=== PATIENT | male | born 1945 | race Caucasian/White ===

== ENCOUNTER 2023-04-02 11:10 | Inpatient (IN) | payer OTHER ==
[~2023-04-02] VITALS: Ht 180.3 cm; Wt 83.0 kg
[2023-04-02 11:15] VITALS: BP_SYST 207; PULSE 60; RESP 22; TEMP 98.3; O2SAT 95
[2023-04-02] MEDS ORDERED: IPRATROPIUM/ALBUTEROL SULFATE 3 ML AMPUL.NEB (DUONEB) INH ONE ×2 (11:30→14:30)
[2023-04-02 11:49] LABS: BASOPHILS # (AUTO) 0.1 K/uL (0.0-0.2); BASOPHILS % (AUTO) 0.5 % (0.0-2.0); EOSINOPHILS # (AUTO) 0.2 K/uL (0.0-0.4); EOSINOPHILS % (AUTO) 1.7 % (0.0-4.0); HEMATOCRIT 36.2 % (36-54); HEMOGLOBIN 11.5 g/dL (14.0-18.0); LYMPHOCYTES # (AUTO) 0.7 K/uL (1.0-5.5); LYMPHOCYTES % (AUTO) 6.3 % (20.5-51.5); MEAN CORPUSCULAR HEMOGLOBIN 28 pg (27-31); MEAN CORPUSCULAR HGB CONC 32 % (32-36); MEAN CORPUSCULAR VOLUME 89 fL (79.0-98.0); MONOCYTES # (AUTO) 1.2 K/uL (0.0-1.0); MONOCYTES % (AUTO) 10.7 % (1.7-9.3); NEUTROPHILS % (AUTO) 80.8 % (40.0-70.0); PLATELET COUNT (AUTO) 285 K/uL (130-430); RED BLOOD CELL COUNT(AUTO) 4.07 MIL/uL (4.2-6.2); RED CELL DISTRIBUTION WIDTH 14.9 % (9.0-15.0); WHITE BLOOD COUNT (AUTO) 11.2 K/uL (4.8-10.8)
[2023-04-02 12:18] LABS: ANION GAP 8 (5-15); CALCIUM 9.2 mg/dL (8.4-11.0); CARBON DIOXIDE 27 mmol/L (23-29); CHLORIDE 105 mmol/L (98-107); CREATININE 1.42 mg/dL (0.55-1.30); GLUCOSE 104 mg/dL (74-106); POTASSIUM 4.7 mmol/L (3.5-5.1); SODIUM SERUM 140 mmol/L (136-145); UREA NITROGEN, BLOOD 22 mg/dL (8-21)
[2023-04-02 12:55] LABS: ALANINE AMINOTRANSFERASE 20 U/L (12-78); ALBUMIN 3.3 g/dL (3.4-4.8); ASPARTATE AMINOTRANSFERASE 15 U/L (10-37); CREATINE KINASE, TOTAL 38 U/L (39-308); TOTAL BILIRUBIN 0.4 mg/dL (0.0-1.0); TOTAL PROTEIN, SERUM 7.8 g/dL (6.4-8.3)
[2023-04-02 13:22] LABS: COVID19 ANTIGEN SOFIA FIA NEGATIVE (NEGATIVE)
[2023-04-02 13:25] LABS: INFLUENZA TYPE A Negative (NEGATIVE); INFLUENZA TYPE B NEGATIVE (NEGATIVE)
[2023-04-02] MEDS ORDERED: SIMV-341 PO (14:18)
[2023-04-02] MEDS ORDERED: HYDR-4039 PO (14:18)
[2023-04-02] MEDS ORDERED: BUME1TAB8 PO (14:18)
[2023-04-02] MEDS ORDERED: GABA-534 PO (14:18)
[2023-04-02] MEDS ORDERED: CYM30 PO (14:18)
[2023-04-02] MEDS ORDERED: LOSA-412 PO (14:18)
[2023-04-02] MEDS ORDERED: LUTE1CAP5 PO (14:18)
[2023-04-02] MEDS ORDERED: BUPR-120 PO (14:18)
[2023-04-02] MEDS ORDERED: BUDE6HFA INH (14:18)
[2023-04-02] MEDS ORDERED: FERR250T PO (14:18)
[2023-04-02] MEDS ORDERED: CARV3.1246 PO (14:18)
[2023-04-02 14:49] VITALS: PULSE 60; O2SAT 98
[2023-04-02 18:43] VITALS: BP_SYST 182; PULSE 68; RESP 22; TEMP 97.9; O2SAT 100
[2023-04-02] MEDS ORDERED: NALOXONE HCL 0.4 MG/ML AMP (NARCAN) IVP PRN (20:30)
[2023-04-02] MEDS ORDERED: cloNIDine HCL 0.2 MG TABLET PO ONE (20:30)
[2023-04-02] MEDS: HYDROcodone/ACETAMIN 5-325 MG TAB (NORCO/ VICODIN) PO PRN (20:47)
[2023-04-02] MEDS: AZITHROMYCIN 250 MG in NS 250 ML IV SCH (20:51)
[2023-04-02 21:04] VITALS: BP_SYST 187; PULSE 60; RESP 19; TEMP 98.2
[2023-04-02 21:30] VITALS: O2SAT 98
[2023-04-02] MEDS: PIPERACILLIN/TAZO 3.375 GM in NS 50 ML IV SCH (22:32)
[2023-04-03] VITALS (7 sets, daily range): BP systolic 146–171; PULSE 60–73; RESP 15–22; TEMP 97.1–97.9; O2SAT 97–100
[2023-04-03] MEDS ORDERED: CARVEDILOL 3.125 MG TABLET (COREG) PO ONE
[2023-04-03] MEDS ORDERED: hydrALAZINE HCL 10 MG TABLET PO ONE
[2023-04-03] MEDS: PIPERACILLIN/TAZO 3.375 GM in NS 50 ML IV SCH ×3 (05:43→22:07)
[2023-04-03] MEDS ORDERED: FUROSEMIDE 20 MG/2 ML VIAL IVP ONE ×2 (07:45→10:15)
[2023-04-03 08:28] LABS: BASOPHILS # (AUTO) 0.1 K/uL (0.0-0.2); BASOPHILS % (AUTO) 0.5 % (0.0-2.0); EOSINOPHILS # (AUTO) 0.2 K/uL (0.0-0.4); EOSINOPHILS % (AUTO) 2.2 % (0.0-4.0); HEMATOCRIT 33.9 % (36-54); LYMPHOCYTES # (AUTO) 0.8 K/uL (1.0-5.5); MEAN CORPUSCULAR HEMOGLOBIN 29 pg (27-31); MEAN CORPUSCULAR HGB CONC 32 % (32-36); MEAN CORPUSCULAR VOLUME 88 fL (79.0-98.0); MONOCYTES % (AUTO) 8.4 % (1.7-9.3); NEUTROPHILS # (AUTO) 9.3 K/uL (1.8-7.7); NEUTROPHILS % (AUTO) 81.9 % (40.0-70.0); PLATELET COUNT (AUTO) 304 K/uL (130-430); RED BLOOD CELL COUNT(AUTO) 3.84 MIL/uL (4.2-6.2); RED CELL DISTRIBUTION WIDTH 15.6 % (9.0-15.0); WHITE BLOOD COUNT (AUTO) 11.4 K/uL (4.8-10.8)
[2023-04-03] MEDS: BETA-CAROTENE W-C & E/ZN/CU TABLET PO SCH (08:31)
[2023-04-03] MEDS: LOSARTAN POTASSIUM 25 MG TABLET PO SCH (08:32)
[2023-04-03] MEDS: buPROPion HCL 150 MG XL TAB PO SCH ×2 (08:32→20:55)
[2023-04-03] MEDS: DULoxetine HCL 30 MG CAPSULE.DR (CYMBALTA) PO SCH (08:32)
[2023-04-03] MEDS: SIMVASTATIN 10 MG TABLET PO SCH (08:32)
[2023-04-03] MEDS: GABAPENTIN 400 MG CAPSULE PO SCH ×4 (08:32→20:54)
[2023-04-03] MEDS: hydrALAZINE HCL 25 MG TABLET PO SCH ×2 (08:33→20:55)
[2023-04-03] MEDS: CARVEDILOL 3.125 MG TABLET (COREG) PO SCH ×2 (08:33→20:54)
[2023-04-03] MEDS: BUMETANIDE 1 MG TABLET PO SCH (08:35)
[2023-04-03] MEDS ORDERED: cloNIDine HCL 0.1 MG TABLET PO PRN (12:15)
[2023-04-03] MEDS: ALBUTEROL SULFATE 0.083% 2.5 MG/3 ML VIAL.NEB INH SCH ×2 (12:34→22:15)
[2023-04-03 12:49] LABS: ABG O2 SAT% ESTIMATE 97.6 % (94.0-100.0); BLOOD GAS BASE EXCESS -3.2 mmol/L (-3.0-3.0); BLOOD GAS HCO3 20.8 mmol/L (21.0-27.0); BLOOD GAS PCO2 34.3 mmHg (32.0-45.0); BLOOD GAS PO2 100.3 mmHg (75.0-100.0)
[2023-04-03] MEDS ORDERED: NACL 0.9% 1,000 ML IV SCH (14:00)
[2023-04-03] MEDS: FUROSEMIDE 20 MG/2 ML VIAL IVP SCH (20:54)
[2023-04-03] MEDS: AZITHROMYCIN 250 MG in NS 250 ML IV SCH (20:57)
[2023-04-03] MEDS ORDERED: AZITHROMYCIN 250 MG in NS 250 ML IV SCH (21:00)
[2023-04-03] MEDS ORDERED: METHYLPREDNISOLONE SOD SUCC 40 MG/ML VIAL IVP SCH (21:00)
[2023-04-03] MEDS: BUDESONIDE 0.5 MG/2 ML AMPUL.NEB INH SCH (22:15)
[2023-04-04] VITALS (11 sets, daily range): BP systolic 145–157; PULSE 60–71; RESP 17–19; TEMP 97.1–98.6; O2SAT 87–100
[2023-04-04] MEDS: ALBUTEROL SULFATE 0.083% 2.5 MG/3 ML VIAL.NEB INH SCH ×4 (03:42→20:16)
[2023-04-04] MEDS: PIPERACILLIN/TAZO 3.375 GM in NS 50 ML IV SCH ×3 (05:30→22:05)
[2023-04-04 05:59] LABS: ANION GAP 11 (5-15); CARBON DIOXIDE 25 mmol/L (23-29); CHLORIDE 102 mmol/L (98-107); CREATININE 1.58 mg/dL (0.55-1.30); GLUCOSE 146 mg/dL (74-106); SODIUM SERUM 138 mmol/L (136-145); UREA NITROGEN, BLOOD 24 mg/dL (8-21)
[2023-04-04 06:00] LABS: BASOPHILS % (AUTO) 0.4 % (0.0-2.0); EOSINOPHILS % (AUTO) 0.1 % (0.0-4.0); HEMATOCRIT 32.7 % (36-54); HEMOGLOBIN 10.5 g/dL (14.0-18.0); LYMPHOCYTES # (AUTO) 0.4 K/uL (1.0-5.5); LYMPHOCYTES % (AUTO) 4.9 % (20.5-51.5); MEAN CORPUSCULAR HEMOGLOBIN 28 pg (27-31); MEAN CORPUSCULAR HGB CONC 32 % (32-36); MEAN CORPUSCULAR VOLUME 89 fL (79.0-98.0); MONOCYTES # (AUTO) 0.1 K/uL (0.0-1.0); MONOCYTES % (AUTO) 1.4 % (1.7-9.3); NEUTROPHILS # (AUTO) 6.6 K/uL (1.8-7.7); NEUTROPHILS % (AUTO) 93.2 % (40.0-70.0); PLATELET COUNT (AUTO) 303 K/uL (130-430); RED BLOOD CELL COUNT(AUTO) 3.69 MIL/uL (4.2-6.2); RED CELL DISTRIBUTION WIDTH 15.5 % (9.0-15.0); WHITE BLOOD COUNT (AUTO) 7.1 K/uL (4.8-10.8)
[2023-04-04 06:11] LABS: BILIRUBIN,URINE NEGATIVE (NEGATIVE); BLOOD, URINE NEGATIVE (NEGATIVE); CLARITY/URINE CLEAR (CLEAR); COLOR,URINE YELLOW (YELLOW); GLUCOSE,URINE NEGATIVE (NEGATIVE); KETONES,URINE NEGATIVE (NEGATIVE); LEUKOCYTE ESTERASE ,URINE NEGATIVE (NEGATIVE); NITRITE, URINE NEGATIVE (NEGATIVE); PROTEIN URINE TRACE (NEGATIVE); UROBILINOGEN,URINE 0.2 (0.2-1.0)
[2023-04-04 06:46] LABS: BACTERIA,URINE RARE /HPF (None Seen)
[2023-04-04] MEDS: BUDESONIDE 0.5 MG/2 ML AMPUL.NEB INH SCH ×2 (07:31→20:16)
[2023-04-04] MEDS: FUROSEMIDE 20 MG/2 ML VIAL IVP SCH ×2 (09:00→20:22)
[2023-04-04 09:06] LABS: PROTHROMBIN TIME 10.6 SECS (9.5-12.5)
[2023-04-04] MEDS: GABAPENTIN 400 MG CAPSULE PO SCH ×4 (09:17→20:23)
[2023-04-04] MEDS: BETA-CAROTENE W-C & E/ZN/CU TABLET PO SCH (09:17)
[2023-04-04] MEDS: SIMVASTATIN 10 MG TABLET PO SCH (09:17)
[2023-04-04] MEDS: buPROPion HCL 150 MG XL TAB PO SCH ×2 (09:17→20:23)
[2023-04-04] MEDS: DULoxetine HCL 30 MG CAPSULE.DR (CYMBALTA) PO SCH (09:23)
[2023-04-04] MEDS: LOSARTAN POTASSIUM 25 MG TABLET PO SCH (09:23)
[2023-04-04] MEDS: hydrALAZINE HCL 25 MG TABLET PO SCH ×2 (09:24→20:22)
[2023-04-04] MEDS: CARVEDILOL 3.125 MG TABLET (COREG) PO SCH ×2 (09:24→20:23)
[2023-04-04] MEDS: BUMETANIDE 1 MG TABLET PO SCH (09:25)
[2023-04-04] MEDS: AZITHROMYCIN 250 MG in NS 250 ML IV SCH (20:21)
[2023-04-04] MEDS: BUMEX 1 MG/4 ML VIAL IVP SCH (20:25)
[2023-04-05] VITALS (11 sets, daily range): BP systolic 140–159; PULSE 60–61; RESP 17–18; TEMP 97–98.3; O2SAT 95–100
[2023-04-05] MEDS: ALBUTEROL SULFATE 0.083% 2.5 MG/3 ML VIAL.NEB INH SCH ×4 (01:00→20:43)
[2023-04-05] MEDS: PIPERACILLIN/TAZO 3.375 GM in NS 50 ML IV SCH ×3 (05:04→22:04)
[2023-04-05] MEDS: BUDESONIDE 0.5 MG/2 ML AMPUL.NEB INH SCH ×2 (07:27→20:44)
[2023-04-05 08:06] LABS: BASOPHILS # (AUTO) 0.1 K/uL (0.0-0.2); HEMOGLOBIN 10.6 g/dL (14.0-18.0); MONOCYTES # (AUTO) 0.9 K/uL (0.0-1.0)
[2023-04-05 08:10] LABS: ALANINE AMINOTRANSFERASE 20 U/L (12-78); ALBUMIN 2.8 g/dL (3.4-4.8); ANION GAP 5 (5-15); ASPARTATE AMINOTRANSFERASE 15 U/L (10-37); CARBON DIOXIDE 30 mmol/L (23-29); CHLORIDE 102 mmol/L (98-107); CREATININE 1.57 mg/dL (0.55-1.30); GLUCOSE 102 mg/dL (74-106); POTASSIUM 3.4 mmol/L (3.5-5.1); SODIUM SERUM 137 mmol/L (136-145); TOTAL BILIRUBIN 0.4 mg/dL (0.0-1.0); UREA NITROGEN, BLOOD 27 mg/dL (8-21)
[2023-04-05 08:13] LABS: EOSINOPHILS # (AUTO) 0.3 K/uL (0.0-0.4); MEAN CORPUSCULAR HEMOGLOBIN 28 pg (27-31)
[2023-04-05] MEDS: GABAPENTIN 400 MG CAPSULE PO SCH ×4 (08:22→20:19)
[2023-04-05] MEDS: hydrALAZINE HCL 25 MG TABLET PO SCH ×2 (08:24→20:20)
[2023-04-05 08:27] LABS: BASOPHILS % (AUTO) 0.8 % (0.0-2.0); EOSINOPHILS % (AUTO) 3.9 % (0.0-4.0); HEMATOCRIT 33.5 % (36-54); LYMPHOCYTES % (AUTO) 12.3 % (20.5-51.5); MEAN CORPUSCULAR HGB CONC 32 % (32-36); MEAN CORPUSCULAR VOLUME 88 fL (79.0-98.0); MONOCYTES % (AUTO) 11.3 % (1.7-9.3); NEUTROPHILS # (AUTO) 5.9 K/uL (1.8-7.7); NEUTROPHILS % (AUTO) 71.7 % (40.0-70.0); PLATELET COUNT (AUTO) 358 K/uL (130-430); WHITE BLOOD COUNT (AUTO) 8.2 K/uL (4.8-10.8)
[2023-04-05] MEDS: HYDROcodone/ACETAMIN 5-325 MG TAB (NORCO/ VICODIN) PO PRN ×3 (08:27→22:31)
[2023-04-05] MEDS: CARVEDILOL 3.125 MG TABLET (COREG) PO SCH ×2 (08:28→20:21)
[2023-04-05] MEDS: SIMVASTATIN 10 MG TABLET PO SCH (08:28)
[2023-04-05] MEDS: BETA-CAROTENE W-C & E/ZN/CU TABLET PO SCH (08:28)
[2023-04-05] MEDS: DULoxetine HCL 30 MG CAPSULE.DR (CYMBALTA) PO SCH (08:29)
[2023-04-05] MEDS: buPROPion HCL 150 MG XL TAB PO SCH ×2 (08:29→20:22)
[2023-04-05] MEDS: LOSARTAN POTASSIUM 25 MG TABLET PO SCH (08:29)
[2023-04-05] MEDS: FUROSEMIDE 20 MG/2 ML VIAL IVP SCH ×2 (08:30→20:20)
[2023-04-05] MEDS: METHYLPREDNISOLONE SOD SUCC 40 MG/ML VIAL IVP SCH (11:09)
[2023-04-05] MEDS: BUMEX 1 MG/4 ML VIAL IVP SCH ×2 (12:22→20:20)
[2023-04-05] MEDS ORDERED: LIDOCAINE PATCH 5% 1 EA TP ONE (14:15)
[2023-04-05] MEDS: AZITHROMYCIN 250 MG in NS 250 ML IV SCH (20:19)
[2023-04-06] VITALS (8 sets, daily range): BP systolic 131–176; PULSE 60–66; RESP 18–20; TEMP 97.5–98.8; O2SAT 95–100
[2023-04-06] MEDS: ALBUTEROL SULFATE 0.083% 2.5 MG/3 ML VIAL.NEB INH SCH ×4 (01:00→19:55)
[2023-04-06] MEDS: PIPERACILLIN/TAZO 3.375 GM in NS 50 ML IV SCH ×3 (05:03→22:03)
[2023-04-06] MEDS: BUDESONIDE 0.5 MG/2 ML AMPUL.NEB INH SCH ×2 (07:26→19:55)
[2023-04-06 08:20] LABS: BASOPHILS # (AUTO) 0.1 K/uL (0.0-0.2); EOSINOPHILS # (AUTO) 0.4 K/uL (0.0-0.4); EOSINOPHILS % (AUTO) 5.2 % (0.0-4.0); HEMATOCRIT 34.6 % (36-54); LYMPHOCYTES # (AUTO) 0.9 K/uL (1.0-5.5); LYMPHOCYTES % (AUTO) 10.7 % (20.5-51.5); MEAN CORPUSCULAR HEMOGLOBIN 28 pg (27-31); MEAN CORPUSCULAR HGB CONC 32 % (32-36); MEAN CORPUSCULAR VOLUME 88 fL (79.0-98.0); MONOCYTES % (AUTO) 11.8 % (1.7-9.3); NEUTROPHILS # (AUTO) 6.1 K/uL (1.8-7.7); NEUTROPHILS % (AUTO) 71.3 % (40.0-70.0); PLATELET COUNT (AUTO) 374 K/uL (130-430); RED BLOOD CELL COUNT(AUTO) 3.93 MIL/uL (4.2-6.2); RED CELL DISTRIBUTION WIDTH 15.2 % (9.0-15.0); WHITE BLOOD COUNT (AUTO) 8.5 K/uL (4.8-10.8)
[2023-04-06 08:39] LABS: ALANINE AMINOTRANSFERASE 26 U/L (12-78); ANION GAP 8 (5-15); ASPARTATE AMINOTRANSFERASE 15 U/L (10-37); CALCIUM 9.3 mg/dL (8.4-11.0); CARBON DIOXIDE 33 mmol/L (23-29); CHLORIDE 103 mmol/L (98-107); CREATININE 1.57 mg/dL (0.55-1.30); GLUCOSE 94 mg/dL (74-106); POTASSIUM 3.7 mmol/L (3.5-5.1); SODIUM SERUM 144 mmol/L (136-145); TOTAL BILIRUBIN 0.4 mg/dL (0.0-1.0); TOTAL PROTEIN, SERUM 7.4 g/dL (6.4-8.3); UREA NITROGEN, BLOOD 28 mg/dL (8-21)
[2023-04-06] MEDS: BUMEX 1 MG/4 ML VIAL IVP SCH (09:02)
[2023-04-06] MEDS: FUROSEMIDE 20 MG/2 ML VIAL IVP SCH (09:03)
[2023-04-06] MEDS: METHYLPREDNISOLONE SOD SUCC 40 MG/ML VIAL IVP SCH (09:05)
[2023-04-06] MEDS: hydrALAZINE HCL 25 MG TABLET PO SCH ×2 (09:07→22:01)
[2023-04-06] MEDS: CARVEDILOL 3.125 MG TABLET (COREG) PO SCH ×2 (09:07→22:02)
[2023-04-06] MEDS: buPROPion HCL 150 MG XL TAB PO SCH ×2 (09:08→22:02)
[2023-04-06] MEDS: DULoxetine HCL 30 MG CAPSULE.DR (CYMBALTA) PO SCH (09:09)
[2023-04-06] MEDS: HYDROcodone/ACETAMIN 5-325 MG TAB (NORCO/ VICODIN) PO PRN ×2 (09:09→16:33)
[2023-04-06] MEDS: GABAPENTIN 400 MG CAPSULE PO SCH ×4 (09:10→22:02)
[2023-04-06] MEDS: SIMVASTATIN 10 MG TABLET PO SCH (09:10)
[2023-04-06] MEDS: LIDOCAINE PATCH 5% 1 EA TP SCH (09:10)
[2023-04-06] MEDS: BETA-CAROTENE W-C & E/ZN/CU TABLET PO SCH (09:10)
[2023-04-06] MEDS: LOSARTAN POTASSIUM 25 MG TABLET PO SCH (09:11)
[2023-04-06 18:06] LABS: QUANTIFERON TB GOLD Negative (Negative)
[2023-04-06] MEDS: AZITHROMYCIN 250 MG in NS 250 ML IV SCH (22:00)
[2023-04-07] VITALS (13 sets, daily range): BP systolic 118–162; PULSE 60–67; RESP 18; TEMP 97.3–98.6; O2SAT 93–99
[2023-04-07] MEDS: ALBUTEROL SULFATE 0.083% 2.5 MG/3 ML VIAL.NEB INH SCH ×4 (01:00→20:22)
[2023-04-07] MEDS: PIPERACILLIN/TAZO 3.375 GM in NS 50 ML IV SCH ×3 (06:10→22:23)
[2023-04-07] MEDS: HYDROcodone/ACETAMIN 5-325 MG TAB (NORCO/ VICODIN) PO PRN ×2 (06:15→23:19)
[2023-04-07] MEDS: BUDESONIDE 0.5 MG/2 ML AMPUL.NEB INH SCH ×2 (07:28→20:22)
[2023-04-07] MEDS: METHYLPREDNISOLONE SOD SUCC 40 MG/ML VIAL IVP SCH (08:19)
[2023-04-07] MEDS: hydrALAZINE HCL 25 MG TABLET PO SCH ×4 (08:20→23:52)
[2023-04-07] MEDS: DULoxetine HCL 30 MG CAPSULE.DR (CYMBALTA) PO SCH (08:21)
[2023-04-07] MEDS: BETA-CAROTENE W-C & E/ZN/CU TABLET PO SCH (08:21)
[2023-04-07] MEDS: SIMVASTATIN 10 MG TABLET PO SCH (08:21)
[2023-04-07] MEDS: CARVEDILOL 3.125 MG TABLET (COREG) PO SCH ×2 (08:21→20:43)
[2023-04-07] MEDS: LIDOCAINE PATCH 5% 1 EA TP SCH (08:22)
[2023-04-07] MEDS: buPROPion HCL 150 MG XL TAB PO SCH ×2 (08:22→20:43)
[2023-04-07] MEDS: GABAPENTIN 400 MG CAPSULE PO SCH ×4 (08:22→20:43)
[2023-04-07] MEDS: BUMETANIDE 1 MG TABLET PO SCH (08:26)
[2023-04-07] MEDS: LOSARTAN POTASSIUM 25 MG TABLET PO SCH (08:26)
[2023-04-07 09:22] LABS: BASOPHILS # (AUTO) 0.1 K/uL (0.0-0.2); BASOPHILS % (AUTO) 0.7 % (0.0-2.0); EOSINOPHILS # (AUTO) 0.3 K/uL (0.0-0.4); EOSINOPHILS % (AUTO) 3.2 % (0.0-4.0); HEMATOCRIT 33.4 % (36-54); HEMOGLOBIN 10.6 g/dL (14.0-18.0); LYMPHOCYTES # (AUTO) 1.1 K/uL (1.0-5.5); LYMPHOCYTES % (AUTO) 11.4 % (20.5-51.5); MEAN CORPUSCULAR HEMOGLOBIN 28 pg (27-31); MEAN CORPUSCULAR HGB CONC 32 % (32-36); MEAN CORPUSCULAR VOLUME 88 fL (79.0-98.0); MONOCYTES % (AUTO) 9.8 % (1.7-9.3); NEUTROPHILS # (AUTO) 7.3 K/uL (1.8-7.7); NEUTROPHILS % (AUTO) 74.9 % (40.0-70.0); PLATELET COUNT (AUTO) 375 K/uL (130-430); RED BLOOD CELL COUNT(AUTO) 3.79 MIL/uL (4.2-6.2); WHITE BLOOD COUNT (AUTO) 9.7 K/uL (4.8-10.8)
[2023-04-07 09:28] LABS: ANION GAP 6 (5-15); CARBON DIOXIDE 33 mmol/L (23-29); CHLORIDE 105 mmol/L (98-107); CREATININE 1.38 mg/dL (0.55-1.30); GLUCOSE 101 mg/dL (74-106); POTASSIUM 3.5 mmol/L (3.5-5.1); SODIUM SERUM 144 mmol/L (136-145); UREA NITROGEN, BLOOD 27 mg/dL (8-21)
[2023-04-07] MEDS: fentaNYL CITRATE/PF 100 MCG/2 ML AMP ONE ×5 (10:25→11:19)
[2023-04-07] MEDS ORDERED: MIDAZOLAM HCL 5 MG/5 ML VIAL ONE (10:26)
[2023-04-07] MEDS ORDERED: MIDAZOLAM HCL 5 MG/5 ML VIAL IVP ONE ×3 (10:45→11:28)
[2023-04-07] MEDS ORDERED: LIDOCAINE 1%, 20 ML MDV 20 ML ONE (10:52)
[2023-04-07] MEDS ORDERED: amLODIPine BESYLATE 10 MG TABLET PO ONE (11:00)
[2023-04-07] MEDS ORDERED: PRED20TA PO (15:01)
[2023-04-07] MEDS ORDERED: LOSA-413 PO (15:03)
[2023-04-08] VITALS (9 sets, daily range): BP systolic 132–152; PULSE 60–67; RESP 16–24; TEMP 97.6–98.4; O2SAT 92–96
[2023-04-08] MEDS: ALBUTEROL SULFATE 0.083% 2.5 MG/3 ML VIAL.NEB INH SCH ×3 (01:00→14:10)
[2023-04-08] MEDS: PIPERACILLIN/TAZO 3.375 GM in NS 50 ML IV SCH ×2 (07:04→13:16)
[2023-04-08] MEDS: BUDESONIDE 0.5 MG/2 ML AMPUL.NEB INH SCH (07:14)
[2023-04-08] MEDS: hydrALAZINE HCL 25 MG TABLET PO SCH ×2 (07:16→13:15)
[2023-04-08] MEDS ORDERED: HYDROCHLOROTHIAZIDE 25 MG TABLET (HCTZ) PO SCH (09:00)
[2023-04-08] MEDS ORDERED: amLODIPine BESYLATE 10 MG TABLET PO SCH (09:00)
[2023-04-08 09:13] LABS: ANION GAP 1 (5-15); CALCIUM 9.5 mg/dL (8.4-11.0); CARBON DIOXIDE 33 mmol/L (23-29); CHLORIDE 100 mmol/L (98-107); CREATININE 1.57 mg/dL (0.55-1.30); GLUCOSE 130 mg/dL (74-106); POTASSIUM 3.7 mmol/L (3.5-5.1); SODIUM SERUM 134 mmol/L (136-145); UREA NITROGEN, BLOOD 29 mg/dL (8-21)
[2023-04-08 09:19] LABS: BASOPHILS # (AUTO) 0.1 K/uL (0.0-0.2); BASOPHILS % (AUTO) 0.8 % (0.0-2.0); EOSINOPHILS # (AUTO) 0.5 K/uL (0.0-0.4); EOSINOPHILS % (AUTO) 3.9 % (0.0-4.0); HEMATOCRIT 36.2 % (36-54); HEMOGLOBIN 11.2 g/dL (14.0-18.0); LYMPHOCYTES # (AUTO) 1.5 K/uL (1.0-5.5); LYMPHOCYTES % (AUTO) 11.8 % (20.5-51.5); MEAN CORPUSCULAR HEMOGLOBIN 28 pg (27-31); MEAN CORPUSCULAR HGB CONC 31 % (32-36); MEAN CORPUSCULAR VOLUME 89 fL (79.0-98.0); MONOCYTES # (AUTO) 0.8 K/uL (0.0-1.0); MONOCYTES % (AUTO) 6.2 % (1.7-9.3); NEUTROPHILS # (AUTO) 9.9 K/uL (1.8-7.7); NEUTROPHILS % (AUTO) 77.3 % (40.0-70.0); PLATELET COUNT (AUTO) 435 K/uL (130-430); RED BLOOD CELL COUNT(AUTO) 4.07 MIL/uL (4.2-6.2); RED CELL DISTRIBUTION WIDTH 15.1 % (9.0-15.0); WHITE BLOOD COUNT (AUTO) 12.8 K/uL (4.8-10.8)
[2023-04-08] MEDS: buPROPion HCL 150 MG XL TAB PO SCH (09:33)
[2023-04-08] MEDS: HYDROcodone/ACETAMIN 5-325 MG TAB (NORCO/ VICODIN) PO PRN (09:33)
[2023-04-08] MEDS: SIMVASTATIN 10 MG TABLET PO SCH (09:33)
[2023-04-08] MEDS: CARVEDILOL 3.125 MG TABLET (COREG) PO SCH (09:34)
[2023-04-08] MEDS: GABAPENTIN 400 MG CAPSULE PO SCH ×2 (09:34→13:15)
[2023-04-08] MEDS: LOSARTAN POTASSIUM 25 MG TABLET PO SCH (09:35)
[2023-04-08] MEDS: BETA-CAROTENE W-C & E/ZN/CU TABLET PO SCH (09:35)
[2023-04-08] MEDS: DULoxetine HCL 30 MG CAPSULE.DR (CYMBALTA) PO SCH (09:35)
[2023-04-08] MEDS: LIDOCAINE PATCH 5% 1 EA TP SCH (09:36)
[2023-04-08] MEDS: METHYLPREDNISOLONE SOD SUCC 40 MG/ML VIAL IVP SCH (09:36)
[2023-04-08] MEDS: BUMETANIDE 1 MG TABLET PO SCH (09:36)
[2023-04-08] MEDS ORDERED: ENOXAPARIN SODIUM 30 MG/0.3 ML SYRINGE SUBCUT SCH (09:45)
[2023-04-08] MEDS ORDERED: traMADol HCL HCL 50 MG TABLET (ULTRAM) PO PRN (09:45)
[2023-04-08] MEDS ORDERED: ENOXAPARIN SODIUM 30 MG/0.3 ML SYRINGE SUBCUT ONE (10:00)
[2023-04-09] MEDS ORDERED: ENOXAPARIN SODIUM 30 MG/0.3 ML SYRINGE SUBCUT SCH (09:00)
== END 2023-04-08 16:35 | disposition home or self-care (01) | DRG 180 ==
LOC: SED 11:10 → SMU 13:11
PROVIDERS: ADMIT Specialist; ATTEND Specialist
PROC: 02HV33Z Insertion of Infusion Device into Superior Vena Cava, Percutaneous Approach (ICD-10-PCS; 2023-04-07)
PROC: B548ZZA Ultrasonography of Superior Vena Cava, Guidance (ICD-10-PCS; 2023-04-07)
PROC: 0BBC3ZX Excision of Right Upper Lung Lobe, Percutaneous Approach, Diagnostic (ICD-10-PCS; principal; 2023-04-07 10:52)
DX: C34.11 Malignant neoplasm of upper lobe, right bronchus or lung (principal); I50.33 Acute on chronic diastolic (congestive) heart failure; J96.01 Acute respiratory failure with hypoxia; I13.0 Hypertensive heart and chronic kidney disease with heart failure and stage 1 through stage 4 chronic kidney disease, or unspecified chronic kidney disease; J44.1 Chronic obstructive pulmonary disease with (acute) exacerbation; N17.9 Acute kidney failure, unspecified; Z20.822 Contact with and (suspected) exposure to COVID-19; N18.31 Chronic kidney disease, stage 3a; I27.20 Pulmonary hypertension, unspecified; Z85.118 Personal history of other malignant neoplasm of bronchus and lung; Z79.899 Other long term (current) drug therapy; Z95.0 Presence of cardiac pacemaker
CPT/HCPCS: 36415; 36600; 71045; 71250-TC; 76376; 76536-TC; 78579; 78580-TC; 80048; 80053; 81000; 82550; 82803; 83605; 83880; 84302; 84484; 85025; 85610-TC; 85730-TC; 86480; 87070-TC; 87205-TC; 88305; 88341; 88342; 93005; 93306; 93970; 94640; 94760; 97116-GP; 97530-GP; 99285; A9539; A9540; J0456; J1030; J1650; J1940; J2001; J2250; J2543; J3010; J3490; J7050; J7626